=== PATIENT | male | born 1955 | race Caucasian/White ===

== ENCOUNTER 2017-06-29 08:35 | Day surgery (SDC) | payer OTHER ==
[2017-06-29] MEDS: MOXIFLOXACIN 0.5% 3 ML OPH OPER (09:29)
[2017-06-29] MEDS: DICLOFENAC 0.1% 2.5 ML OPH OPER (09:29)
[2017-06-29] MEDS: TROPICAMIDE 1% 3 ML OPH OPER ×2 (09:31→11:34)
[2017-06-29] MEDS: LIDOCAINE 3.5% GEL TUBE OPER (09:31)
[2017-06-29] MEDS: PHENYLephrine 10% 5 ML OPH OPER (09:31)
[2017-06-29] MEDS ORDERED: CARBACHOL 0.01% 1.5 ML OPH INJ (09:49)
[2017-06-29] MEDS ORDERED: NA HYALURONATE/CHONDROITIN 0.5 ML SYG (09:53)
[2017-06-29] MEDS ORDERED: MIDAZOLAM 1 MG/ML 2 ML INJ (10:37)
[2017-06-29] MEDS ORDERED: FENTAnyl 50 MCG/ML VIAL (10:37)
[2017-06-29] MEDS ORDERED: DEXAMETHASONE 4 MG/ML 1 ML INJ (10:51)
[2017-06-29] MEDS ORDERED: METOCLOPRAMIDE 10 MG INJ (10:51)
[2017-06-29] MEDS ORDERED: ONDANSETRON 4 MG INJ ×2 (10:51→11:45)
[2017-06-29] MEDS: LIDOCAINE 1%/EPI 30 ML INJ (10:57)
[2017-06-29] MEDS: TOBRAMYCIN/DEXAMETH 3.5 GM OPH OINT (10:57)
[2017-06-29] MEDS: EPINEPHrine 1 MG INJ (10:58)
[2017-06-29] MEDS ORDERED: SODIUM HYALURONATE 14 MG/ML SYG (10:59)
[2017-06-29] MEDS ORDERED: TROPICAMIDE 1% 3 ML OPH OPER (11:00)
[2017-06-29] MEDS ORDERED: LIDOCAINE 3.5% GEL TUBE OPER (11:00)
[2017-06-29] MEDS ORDERED: PHENYLephrine 10% 5 ML OPH OPER (11:00)
[2017-06-29] MEDS ORDERED: morphine (1 MG/ML) 10ML SYRINGE IV ×2 (11:30)
[2017-06-29] MEDS ORDERED: METOCLOPRAMIDE 10 MG INJ IV (11:30)
[2017-06-29] MEDS ORDERED: FENTAnyl 50 MCG/ML VIAL IV ×2 (11:30)
[2017-06-29] MEDS ORDERED: OXYCODONE/ACETAMINOPHEN (5/325) TAB PO (11:30)
[2017-06-29] MEDS ORDERED: hydrALAzine 20 MG INJ IV (11:30)
[2017-06-29] MEDS ORDERED: LABETALOL HCL 20MG INJ IV (11:30)
[2017-06-29] MEDS ORDERED: DIPHENHYDRAMINE 50 MG INJ IV (11:30)
[2017-06-29] MEDS ORDERED: MEPERIDINE 25 MG INJ (11:45)
[2017-06-29] MEDS: MEPERIDINE 25 MG INJ IV (11:51)
[2017-06-29] MEDS: ONDANSETRON 4 MG INJ IV (11:51)
== END 2017-06-29 13:15 | disposition home or self-care (01) ==
LOC: SDS 08:35
DX: H26.9 Unspecified cataract (principal); I10 Essential (primary) hypertension
CPT/HCPCS: 66984